=== PATIENT | male | born 1965 | race Caucasian/White ===

== ENCOUNTER 2018-11-07 19:30 | Inpatient (IN) | payer MEDICARE, MEDICAID ==
--- NOTE | 2018-11-07 20:06 | ED Physician Chart ---
ED Chief Complaint/HPI - Patient Information Date Seen:: 11/07/18 Time Seen:: 20:03 Chief Complaint:: weakness dehydration History of Present Illness:: 53 yr old male with hx of mental retardation non verbal here from dc for dehydration and weakness pt non verbal not following commands no fever cough or vomiting Allergies:: Allergies Allergy/AdvReac Type Severity Reaction Status Date / Time No Known Allergies Allergy Verified 11/07/18 19:49 Vitals:: Vital Signs - 8 hr 11/07/18 19:35 Temp 97.7 F HR 80 RR 18 BP 123/90 O2 Sat % 96 ED Review of Systems - Review of Systems General/Constitutional: No fever, No chills, No weight loss, No weakness, No diaphoresis, No edema, No loss of appetite Skin: No skin lesions, No rash, No bruising Head: No headache, No light-headedness Eyes: No loss of vision, No pain, No diplopia ENT: No earache, No nasal drainage, No sore throat, No tinnitus Neck: No neck pain, No swelling, No thyromegaly, No stiffness, No mass noted Cardio Vascular: No chest pain, No palpitations, No PND, No orthopnea, No edema Pulmonary: No SOB, No cough, No sputum, No wheezing GI: No nausea, No vomiting, No diarrhea, No pain, No melena, No hematochezia, No constipation, No hematemesis G/U: No dysuria, No frequency, No hematuria Musculoskeletal: No bone or joint pain, No back pain, No muscle pain Endocrine: No polyuria, No polydipsia Psychiatric: No prior psych history, No depression, No anxiety, No suicidal ideation Hematopoietic: No bruising, No lymphadenopathy Allergic/Immuno: No urticaria, No angioedema Neurological: No syncope, No focal symptoms, No weakness, No paresthesia, No headache, No seizure, No dizziness, No confusion, No vertigo ED Past Medical History - Past Medical History Past Medical History: Other (mental retardation) ED Physical Exam - Physical Examination General/Constitutional: Awake, Well-developed, well-nourished, No distress, Non- toxic appearing Head: Atraumatic Eyes: Lids, conjuctiva normal, PERRL, EOMI Skin: Nl inspection, No rash, No skin lesions, No ecchymosis, Well hydrated, No lymphadenopathy ENMT: External ears, nose nl, Nasal exam nl, Lips, teeth, gums nl Neck: Nontender, Full ROM w/o pain, No JVD, No nuchal rigidity, No bruit, No mass, No stridor Respiratory: Nl effort/Exclusion, Clear to Auscultation, No Wheeze/Rhonchi/Rales Cardio Vascular: RRR, No murmur, gallop, rubs, NL S1 S2 GI: No tenderness/rebounding/guarding, No organomegaly, No hernia, Normal BS's, Nondistended, No mass/bruits, No McBurney tenderness : No CVA tenderness Extremities: No tenderness or effusion, Full ROM, normal strength in all extremities, No edema, Normal digits & nails Neuro/Psych: Alert/oriented, DTR's symmetric, Normal sensory exam, Normal motor strength, Judgement/insight normal, Mood normal, Normal gait, No focal deficits Misc: Normal back, No paraspinal tenderness ED Assessment - Assessment General Assessment: weakness dehydration ED Septic Shock - . Is Septic Shock (SBP<90, OR Lactate>4 mmol\L) present?: No - <6hrs of presentation: Vital Signs: Vital Signs - 8 hr 11/07/18 19:35 Temp 97.7 F HR 80 RR 18 BP 123/90 O2 Sat % 96 ED Reassessment (Disposition) - Reassessment Reassessment:: weakness dehydration mental retardation - Diagnosis Diagnosis:: as above - Patient Disposition Discharge/Transfer:: Acute Care w/in this hosp Admitted to:: Med/Surg Condition at Disposition:: Stable
[2018-11-07 20:52] LABS: % EOSINOPHILS 0.8 % (0.0-5.0); % MONOCYTES 5.9 % (2.0-10.0); % NEUTROPHILS 65.3 % (40.0-80.0); EOSINOPHILE ABSOLUTE 0.1 Th/cmm (0.1-0.4); HEMATOCRIT 43.6 % (41.0-60); HEMOGLOBIN 14.7 gm/dL (12-16); LYMPHOCYTE ABSOLUTE 2.2 Th/cmm (1.5-3.0); MEAN CELL VOLUME 94.4 fl (80-99); MEAN CORPUSCULAR HEMOGLOBIN 31.8 pg (26.0-30.0); MEAN CORPUSCULAR HGB CONC 33.7 pg (28.0-36.0); MONOCYTE ABSOLUTE 0.5 Th/cmm (0.3-1.0); NEUTROPHILE ABSOLUTE 5.2 Th/cmm (1.8-8.0); PLATELET COUNT 159 Th/cmm (150-400); RED BLOOD COUNT 4.62 Mil/cmm (4.30-5.70); RED CELL DISTRIBUTION WIDTH 12.9 % (11.5-20.0)
[2018-11-07 21:26] LABS: ALB/GLOB RATIO 1.7 (1.0-1.8); ALKALINE PHOSPHATASE 51 U/L (34-104); ANION GAP 12.3 (7.0-16.0); BILIRUBIN,TOTAL 0.5 mg/dL (0.3-1.0); BUN - UREA NITROGEN 14 mg/dL (7-25); CALCIUM SERUM 9.2 mg/dL (8.6-10.3); CARBON DIOXIDE 28.5 mEq/L (21.0-31.0); CHLORIDE 98 mEq/L (98-107); CREATININE - SERUM 0.9 mg/dL (0.7-1.3); GFR AFRICAN-AMERICAN > 60.0 ml/min (>90); GFR NON AFRICAN-AMERICAN > 60.0 ml/min; GLUCOSE 94 mg/dL (70-105); POTASSIUM SERUM 3.8 mEq/L (3.5-5.1); SGOT 37 U/L (13-39); SGPT/ALT 32 U/L (7-52); SODIUM SERUM 135 mEq/L (136-145); TOTAL PROTEIN,SERUM 6.4 gm/dL (6.0-8.3)
[2018-11-08] MEDS ORDERED: D5-0.45NS 1,000 ML IV SCH (01:06)
[2018-11-08 01:49] VITALS: BP 104/67
[2018-11-08 05:19] LABS: % BASOPHILS 3.4 % (0.0-2.0); % EOSINOPHILS 0.7 % (0.0-5.0); % LYMPHOCYTES 33.9 % (20.0-50.0); % MONOCYTES 9.4 % (2.0-10.0); % NEUTROPHILS 52.6 % (40.0-80.0); BASOPHILE ABSOLUTE 0.2 Th/cumm (0-0.2); HEMATOCRIT 40.9 % (41.0-60); HEMOGLOBIN 13.6 gm/dL (12-16); LYMPHOCYTE ABSOLUTE 2.3 Th/cmm (1.5-3.0); MEAN CELL VOLUME 95.4 fl (80-99); MEAN CORPUSCULAR HEMOGLOBIN 31.8 pg (26.0-30.0); MEAN CORPUSCULAR HGB CONC 33.4 pg (28.0-36.0); MONOCYTE ABSOLUTE 0.6 Th/cmm (0.3-1.0); NEUTROPHILE ABSOLUTE 3.6 Th/cmm (1.8-8.0); PLATELET COUNT 144 Th/cmm (150-400); RED BLOOD COUNT 4.29 Mil/cmm (4.30-5.70); RED CELL DISTRIBUTION WIDTH 12.6 % (11.5-20.0); WHITE BLOOD COUNT 6.7 Th/cmm (4.8-10.8)
[2018-11-08 05:52] LABS: ALB/GLOB RATIO 1.5 (1.0-1.8); ALBUMIN 3.3 gm/dL (4.2-5.5); ALKALINE PHOSPHATASE 44 U/L (34-104); ANION GAP 9.9 (7.0-16.0); BILIRUBIN,TOTAL 0.5 mg/dL (0.3-1.0); BUN - UREA NITROGEN 12 mg/dL (7-25); CALCIUM SERUM 8.6 mg/dL (8.6-10.3); CARBON DIOXIDE 27.3 mEq/L (21.0-31.0); CHLORIDE 100 mEq/L (98-107); CHOLESTEROL 131 mg/dL (<200); CREATININE - SERUM 0.8 mg/dL (0.7-1.3); GFR AFRICAN-AMERICAN > 60.0 ml/min (>90); GFR NON AFRICAN-AMERICAN > 60.0 ml/min; GLUCOSE 99 mg/dL (70-105); HDL -HIGH DENSITY LIPOPROTEIN 33 mg/dL (23-92); POTASSIUM SERUM 3.2 mEq/L (3.5-5.1); SGOT 33 U/L (13-39); SGPT/ALT 26 U/L (7-52); SODIUM SERUM 134 mEq/L (136-145); TOTAL PROTEIN,SERUM 5.5 gm/dL (6.0-8.3); TRIGLYCERIDES 104 mg/dL (<150)
[2018-11-08] MEDS ORDERED: Potassium Chloride 20 mEq ER Tab PO ONE ×2 (09:51→11:30)
[2018-11-08] MEDS ORDERED: BACITRACIN TP PRN (09:53)
[2018-11-08] MEDS ORDERED: [UNRECOGNIZED DRUG - OTHER] PO PRN (09:57)
[2018-11-08] MEDS ORDERED: PSEUDOEPHEDRINE PO PRN (09:57)
[2018-11-08 10:36] LABS: URINE SOURCE CLEAN C
[2018-11-08 10:45] LABS: URINE BILIRUBIN NEGATIVE (NEGATIVE); URINE BLOOD NEGATIVE (NEGATIVE); URINE GLUCOSE (UA) NEGATIVE (NEGATIVE); URINE KETONE NEGATIVE (NEGATIVE); URINE LEUKOCYTE ESTERASE NEGATIVE (NEGATIVE); URINE NITRATE NEGATIVE (NEGATIVE); URINE PROTEIN NEGATIVE (NEGATIVE)
[2018-11-08 11:00] LABS: URINE CLARITY CLEAR (CLEAR); URINE COLOR YELLOW
[2018-11-08 11:01] LABS: URINE BACTERIA FEW /hpf (NONE SEEN); URINE EPITHELIAL CELLS NONE SEEN /lpf (FEW); URINE MICROSCOPIC INDICATED? YES; URINE RBC 0-2 /hpf (0-5); URINE WBC 0-2 /hpf (0-5)
[2018-11-08] MEDS ORDERED: Bacitracin pkt 1 gm Pkt TP PRN (11:24)
[2018-11-08] MEDS: D5-0.45NS 1,000 ML IV SCH ×2 (13:44→20:49)
[2018-11-08] MEDS ORDERED: HALOPERIDOL 10 MG PO SCH (17:00)
[2018-11-08] MEDS: Benztropine 1 MG TAB PO SCH (17:07)
--- NOTE | 2018-11-08 20:32 | Consultation ---
DATE OF CONSULTATION: 11/08/2018 Initial psychiatric evaluation at Med/Surg. SUBJECTIVE: The patient was seen and evaluated. The patient's chart reviewed. REASON FOR CONSULTATION: Dehydration. HISTORY OF PRESENT ILLNESS: A 53-year-old male with a history of developmental delay, brought in here for dehydration, weakness, nonverbal to follow much commands. No fever, no cough. Today on evaluation, the patient observed to be lethargic, minimally interactive, disengaged in interview, poor historian overall. PAST PSYCHIATRIC HISTORY: History of schizoaffective disorder. ALLERGIES TO MEDICATIONS: NKDA. MEDICAL ILLNESSES: Dehydration, weakness. FAMILY PSYCHIATRIC: Noncontributory. SOCIAL HISTORY: Living in a halfway. Developmental delay. LEGAL HISTORY: Noncontributory. MENTAL STATUS EXAMINATION: Disengaged, withdrawn, lethargic, needing redirection. Unable to assess thought process, thought content due to the patient is selectively mute. ASSESSMENT: Suicidal ideation, unable to assess. CURRENT MEDICATIONS: Bacitracin, ibuprofen, loperamide, benztropine, Haldol, trazodone, Abilify 30 mg, multivitamin, Depakote, Ativan. ASSESSMENT: A 53-year-old male with a history of developmental delay, history of schizoaffective disorder with a history of dehydration and altered mental status. At this time, we will recommend to hold off the Haldol, check a CK level to rule out rhabdomyolysis. Check Depakote levels. PRIMARY DIAGNOSIS: Schizoaffective disorder. SECONDARY DIAGNOSIS: Delirium. MEDICAL DIAGNOSIS: As noted above. PLAN: 1. No criteria for 5150 at this time. 2. We will continue monitoring and evaluating. 3. Recommend to check CK levels and rule out rhabdomyolysis. 4. Recommend to continue with the current medication regimen except for Haldol until further collateral baseline information is obtained. Thank you for the consultation. We will continue to follow along. [facility]# [id number]
[2018-11-08] MEDS ORDERED: Non-Formulary Item 1 EA (Trazodone Hcl [Trazodone Hcl] 100 MG) PO SCH (21:00)
--- NOTE | 2018-11-08 21:21 | Consultation ---
DATE OF CONSULTATION: 11/08/2018 GASTROENTEROLOGY CONSULTATION REQUESTING PHYSICIAN: Dr. Kaykay Pack. REASON FOR CONSULTATION: Poor oral intake. HISTORY OF PRESENT ILLNESS: A 53-year-old male with a possible mental delay, brought in from shelter for anorexia and dehydration. The patient reportedly has a poor oral intake. We were asked to see him for above reasons. PAST MEDICAL HISTORY: As above. MEDICATIONS: Here are Abilify, bacitracin p.r.n., Cogentin, valproic acid, Colace p.r.n., Haldol, ibuprofen p.r.n., Imodium p.r.n., Ativan, multivitamin, trazodone. ALLERGIES: No known drug allergies. SOCIAL HISTORY: half-way resident. Unknown tobacco, alcohol, or drug status. FAMILY HISTORY: Noncontributory. REVIEW OF SYSTEMS: A comprehensive 12-point review of systems was conducted, but it is only positive for those signs and symptoms present in history of present illness. PHYSICAL EXAMINATION: VITAL SIGNS: Temperature 97.6, blood pressure 109/60, pulse of 65, respirations 17, O2 sat is 96% on room air. GENERAL: The patient is a well-developed, chronically ill-appearing male, in no acute distress. HEENT: Sclerae nonicteric. Oropharynx is clear. CARDIOVASCULAR: Regular rate and rhythm. LUNGS: Clear to auscultation bilaterally. ABDOMEN: Soft, nontender, slightly distended. Normoactive bowel sounds. EXTREMITIES: No clubbing, cyanosis or edema. RECTAL: Deferred. LABORATORY DATA AND IMAGING: WBC 6.7, hemoglobin 13.6, platelet count is 144. Sodium 134, creatinine 0.8. LFTs are normal. Troponin negative. Urinalysis is clear. IMPRESSION: 1. Poor oral intake, rule out gastroesophageal reflux disease, constipation or anorexia from central etiology such as worsening encephalopathy. 2. Mental delay with possible psychosis and psychiatric disorder. RECOMMENDATIONS: 1. Check KUB to rule out constipation or fecal impaction. 2. Check baseline labs including amylase and lipase to rule out pancreatitis. 3. Monitor oral caloric intake with calorie count. 4. If oral intake remains poor and if consent obtained, then consider upper endoscopy and/or G-tube insertion. 5. Psychiatry followup. Thank you, Dr. Kaykay Pack for involving us in the care of your patient. If you have any further questions, please call us. JOB# [id number]
[2018-11-09 06:47] LABS: ALB/GLOB RATIO 1.7 (1.0-1.8); ALBUMIN 3.6 gm/dL (4.2-5.5); ALKALINE PHOSPHATASE 45 U/L (34-104); ANION GAP 10.4 (7.0-16.0); BILIRUBIN,TOTAL 0.4 mg/dL (0.3-1.0); BUN - UREA NITROGEN 9 mg/dL (7-25); CALCIUM SERUM 8.8 mg/dL (8.6-10.3); CARBON DIOXIDE 25.3 mEq/L (21.0-31.0); CHLORIDE 106 mEq/L (98-107); CREATININE - SERUM 0.8 mg/dL (0.7-1.3); GFR AFRICAN-AMERICAN > 60.0 ml/min (>90); GFR NON AFRICAN-AMERICAN > 60.0 ml/min; GLUCOSE 119 mg/dL (70-105); LIPASE 25 U/L (11-82); POTASSIUM SERUM 3.7 mEq/L (3.5-5.1); SGOT 36 U/L (13-39); SGPT/ALT 29 U/L (7-52); SODIUM SERUM 138 mEq/L (136-145); TOTAL PROTEIN,SERUM 5.7 gm/dL (6.0-8.3)
[2018-11-09 06:59] LABS: % BASOPHILS 4.8 % (0.0-2.0); % EOSINOPHILS 1.6 % (0.0-5.0); % LYMPHOCYTES 29.1 % (20.0-50.0); % NEUTROPHILS 55.5 % (40.0-80.0); BASOPHILE ABSOLUTE 0.4 Th/cumm (0-0.2); EOSINOPHILE ABSOLUTE 0.1 Th/cmm (0.1-0.4); HEMATOCRIT 43.6 % (41.0-60); HEMOGLOBIN 14.6 gm/dL (12-16); LYMPHOCYTE ABSOLUTE 2.2 Th/cmm (1.5-3.0); MEAN CELL VOLUME 94.7 fl (80-99); MEAN CORPUSCULAR HEMOGLOBIN 31.8 pg (26.0-30.0); MEAN CORPUSCULAR HGB CONC 33.6 pg (28.0-36.0); MONOCYTE ABSOLUTE 0.7 Th/cmm (0.3-1.0); NEUTROPHILE ABSOLUTE 4.1 Th/cmm (1.8-8.0); PLATELET COUNT 160 Th/cmm (150-400); RED CELL DISTRIBUTION WIDTH 12.9 % (11.5-20.0); WHITE BLOOD COUNT 7.5 Th/cmm (4.8-10.8)
[2018-11-09] MEDS ORDERED: Non-Formulary Item 1 EA (Multivitamin [Multivitamins] 1 CAP) PO SCH (09:00)
[2018-11-09] MEDS ORDERED: Non-Formulary Item 1 EA (Aripiprazole [Abilify] 20 MG) PO SCH (09:00)
[2018-11-09] MEDS ORDERED: Non-Formulary Item 1 EA (Linaclotide [Linzess] 145 MCG) PO SCH (09:00)
[2018-11-09] MEDS: D5-0.45NS 1,000 ML IV SCH ×2 (10:53→17:11)
--- NOTE | 2018-11-09 10:55 | History and Physical ---
History of Present Illness - HPI Chief Complaint: Weakness and Dehydration HPI: 53-yr old male with hx of developmental delay, non-verbal in ER came from [facility] for dehydration and weakness. Patient was non-verbal and was not following commands. Vital Signs: Last Vital Signs Temp 98.6 F 11/09/18 08:00 Pulse 74 11/09/18 08:00 Resp 18 11/09/18 08:00 BP 114/65 11/09/18 08:00 Pulse Ox 96 11/09/18 08:00 Past Medical History Psych: Report: Schizophrenia Musculoskeletal: Report: Weakness Other History: Developmental Delay Social History Smoke: No Alcohol: Other (unknown) Drugs: Other (unknown) Lives: Intermediate - Medications Home Medications: Home Medication Medication Instructions Recorded Type Aripiprazole [Abilify] 20 mg PO DAILY 11/07/18 History Bacitracin 1 pkt TP ONCE PRN 11/07/18 History Benztropine [Cogentin*] 1 mg PO BID 11/07/18 History Divalproex ER [Depakote ER] 1,000 mg PO HS 11/07/18 History Divalproex Sodium [Depakote ER] 500 mg PO QAM 11/07/18 History Docusate Sodium [Dok] 100 mg PO HS PRN 11/07/18 History Guaifenesin/Dextromethorphan 1 - 2 tsp PO QID PRN 11/07/18 History [Tussin Dm Cough Syrup] Haloperidol 10 mg PO BID 11/07/18 History Ibuprofen [Motrin*] 600 mg PO TID PRN 11/07/18 History Linaclotide [Linzess] 145 mcg PO DAILY 11/07/18 History Loperamide [Imodium] 2 mg PO Q6HR PRN 11/07/18 History Lorazepam [Ativan] 1 mg PO BID 11/07/18 History Multivitamin [Multivitamins] 1 cap PO DAILY 11/07/18 History Trazodone HCl 100 mg PO HS 11/07/18 History Triprolidine/Pseudoephedrine 1 each PO TID PRN 11/07/18 History [Aprodine Tablet] aripIPRAZOLE [Abilify] 10 mg PO HS 11/07/18 History - Allergies Allergies/Adverse Reactions: Allergies Allergy/AdvReac Type Severity Reaction Status Date / Time No Known Allergies Allergy Verified 11/07/18 19:49 Review of Systems - Review of Systems Constitutional: Report: Weakness Eyes: Report: No Significant ENT: Report: No Significant Respiratory: Report: No Significant Cardiovascular: Report: No Significant Gastrointestinal: Report: No Significant Genitourinary: Report: No Significant Musculoskeletal: Report: No Significant Skin: Report: No Significant Neurological: Report: No Significant Other: Patient poor historian. Physical Exam - Physical Exam Neck: Report: Within normal limits Cardiovascular Systems: Report: +s1/s2 noted, Regular, Rate and Rhythm, no murmurs noted Respiratory: Report: Breath Sounds are within normal limits, Clear to Auscultation of lung deutsch Abdomen: Report: Non-tender to palpation Extremities: Report: Non-tender to palpation. Neuro/Psych: Report: Other (developmentally delayed) - Lab Results All Lab Results last 24 hours: Laboratory Results - last 24 hr 11/08/18 11/08/18 11/08/18 05:00 10:30 11:33 WBC RBC Hgb Hct MCV MCH MCHC Differential RDW Plt Count MPV Neutrophils % Lymphocytes % Monocytes % Eosinophils % Basophils % Sodium Potassium Chloride Carbon Dioxide Anion Gap BUN Creatinine Est GFR ( Amer) Est GFR (Non-Af Amer) BUN/Creatinine Ratio Glucose Calcium Total Bilirubin AST ALT Alkaline Phosphatase Creatine Kinase 586 H CK-MB (CK-2) 23.1 H Total Protein Albumin Globulin Albumin/Globulin Ratio Lipase TSH 3.02 Urine Source CLEAN C Urine Color YELLOW Urine Clarity CLEAR Urine pH 6.0 Ur Specific [place] <= 1.005 Urine Protein NEGATIVE Urine Glucose (UA) NEGATIVE Urine Ketones NEGATIVE Urine Blood NEGATIVE Urine Nitrate NEGATIVE Urine Bilirubin NEGATIVE Urine Urobilinogen 1.0 Ur Leukocyte Esterase NEGATIVE Urine RBC 0-2 H Urine WBC 0-2 Ur Epithelial Cells NONE SEEN Urine Bacteria FEW 11/09/18 11/09/18 05:40 05:40 WBC 7.5 RBC 4.60 Hgb 14.6 Hct 43.6 MCV 94.7 MCH 31.8 H MCHC Differential 33.6 RDW 12.9 Plt Count 160 MPV 7.8 Neutrophils % 55.5 Lymphocytes % 29.1 Monocytes % 9.0 Eosinophils % 1.6 Basophils % 4.8 H Sodium 138 Potassium 3.7 Chloride 106 Carbon Dioxide 25.3 Anion Gap 10.4 BUN 9 Creatinine 0.8 Est GFR ( Amer) > 60.0 Est GFR (Non-Af Amer) > 60.0 BUN/Creatinine Ratio 11.3 Glucose 119 H Calcium 8.8 Total Bilirubin 0.4 AST 36 ALT 29 Alkaline Phosphatase 45 Creatine Kinase CK-MB (CK-2) Total Protein 5.7 L Albumin 3.6 L Globulin 2.1 Albumin/Globulin Ratio 1.7 Lipase 25 TSH Urine Source Urine Color Urine Clarity Urine pH Ur Specific [place] Urine Protein Urine Glucose (UA) Urine Ketones Urine Blood Urine Nitrate Urine Bilirubin Urine Urobilinogen Ur Leukocyte Esterase Urine RBC Urine WBC Ur Epithelial Cells Urine Bacteria Microbiology 11/07/18 20:45 - Preliminary Blood NO GROWTH AFTER 24 HOURS 11/07/18 20:35 - Preliminary Blood NO GROWTH AFTER 24 HOURS - Assessment Assessment: Developmental Delay Dehydration Weakness H/O schizoaffective disorder - Plan Plan: Continue current treatment plan. Monitor Labs.Continue current medications Continue to monitor VS Monitor Diet/Nutritional support. Psych management per Psychiatry. Pain Management. PT/OT prn Safety precaution, Fall precaution, frequent nursing round. Supportive care. Continue collaborating with consulting specialists, case management and nursing team. Follow up calorie counting. Follow up KUB results. Follow up abdominal US.
[2018-11-09] MEDS: Multivitamin Tab PO SCH (11:33)
[2018-11-09] MEDS: Benztropine 1 MG TAB PO SCH ×2 (11:37→17:11)
[2018-11-10] MEDS: D5-0.45NS 1,000 ML IV SCH ×4 (00:11→11:31)
--- NOTE | 2018-11-10 05:23 | Progress Notes ---
DATE: 11/09/2018 The patient was seen and evaluated. The patient's chart reviewed. Overnight nursing staff reported the patient is more awake, more alert. Today on [id number] evaluation, the patient is non-sedated. He is more awake and more alert, and due to the patient's developmental delay, the history is limited, but he reports "no pain," and he is able to report that he is in the hospital, although overall poor historian. MENTAL STATUS EXAMINATION: More alert, oriented to hospital. No suicidal, homicidal, or auditory hallucinations. ASSESSMENT AND PLAN: History of schizophrenia, history of developmental delay. Overnight, the patient's CK had been treated for dehydration, seems to be improving per the primary physician. I am recommending to check another CK level. If he continues to lower in the next 24 hours, the patient's Abilify may be resumed as a standing dosage. Thank you for your consultation. JOB# [id number]
[2018-11-10] MEDS: Multivitamin Tab PO SCH (08:56)
[2018-11-10] MEDS: Benztropine 1 MG TAB PO SCH (08:56)
--- NOTE | 2018-11-10 09:22 | Diagnostic Imaging Report ---
KUB single view HISTORY: Constipation. COMPARISON: None FINDINGS: Generalized gas-filled loops of bowel are noted with moderate stool noted in distal fecal impaction. Osseous structures are intact. Pelvic phleboliths are noted. Degenerative change of the lower lumbar spine are noted with possible spina bifida occulta L5. IMPRESSION: Generalized gas-filled loops of bowel with moderate stool and distal fecal impaction. Findings may be due to mild constipation and ileus.
--- NOTE | 2018-11-10 09:27 | Diagnostic Imaging Report ---
Ultrasound abdomen HISTORY: Abdominal pain COMPARISON: KUB performed the same day Technique: Sonography of the abdomen was performed in multiple planes. FINDINGS: Exam is limited due to body habitus and as patient was uncooperative. The liver demonstrates normal echogenicity and measures 12.1 cm. Assessment of the left lobe of the liver was limited limiting assessment for focal lesions. The gallbladder was poorly evaluated. There appear to be gallbladder folds. Note patient refused to do left lateral decubitus views. The common bile duct and pancreas were also not clearly seen. Limited assessment of the kidneys demonstrates no hydronephrosis or obvious focal lesions. Assessment for focal lesions is limited. The spleen measures 11.3 cm. IMPRESSION: Severely limited exam due to patient body habitus and patient was uncooperative. The gallbladder was not able to be well evaluated. There appear to be gallbladder folds. Recommend further assessment with left lateral decubitus images, when clinically feasible. No evidence of hydronephrosis.
--- NOTE | 2018-11-10 11:27 | Internal Medicine Prog Note ---
Internal Medicine Subjective - Subjective Service Date: 11/10/18 Patient seen and examined:: with staff Patient is:: awake, non-verbal, non-interactive, in bed Patient Complaints of:: other (Developmental delay.) Per staff patient has:: no adverse event, no episodes of fall Internal Medicine Objective - Results Result Diagrams: 11/09/18 05:40 11/09/18 05:40 Recent Labs: Laboratory Last Values WBC 7.5 Th/cmm (4.8-10.8) 11/09/18 05:40 RBC 4.60 Mil/cmm (4.30-5.70) 11/09/18 05:40 Hgb 14.6 gm/dL (12-16) 11/09/18 05:40 Hct 43.6 % (41.0-60) 11/09/18 05:40 MCV 94.7 fl (80-99) 11/09/18 05:40 MCH 31.8 pg (26.0-30.0) H 11/09/18 05:40 MCHC Differential 33.6 pg (28.0-36.0) 11/09/18 05:40 RDW 12.9 % (11.5-20.0) 11/09/18 05:40 Plt Count 160 Th/cmm (150-400) 11/09/18 05:40 MPV 7.8 fl 11/09/18 05:40 Neutrophils % 55.5 % (40.0-80.0) 11/09/18 05:40 Lymphocytes % 29.1 % (20.0-50.0) 11/09/18 05:40 Monocytes % 9.0 % (2.0-10.0) 11/09/18 05:40 Eosinophils % 1.6 % (0.0-5.0) 11/09/18 05:40 Basophils % 4.8 % (0.0-2.0) H 11/09/18 05:40 Sodium 138 mEq/L (136-145) 11/09/18 05:40 Potassium 3.7 mEq/L (3.5-5.1) 11/09/18 05:40 Chloride 106 mEq/L (98-107) 11/09/18 05:40 Carbon Dioxide 25.3 mEq/L (21.0-31.0) 11/09/18 05:40 Anion Gap 10.4 (7.0-16.0) 11/09/18 05:40 BUN 9 mg/dL (7-25) 11/09/18 05:40 Creatinine 0.8 mg/dL (0.7-1.3) 11/09/18 05:40 Est GFR ( Amer) > 60.0 ml/min (>90) 11/09/18 05:40 Est GFR (Non-Af Amer) > 60.0 ml/min 11/09/18 05:40 BUN/Creatinine Ratio 11.3 11/09/18 05:40 Glucose 119 mg/dL (70-105) H 11/09/18 05:40 Whole Bld Lactic Acid 1.17 mmol/L (0.60-1.99) 11/07/18 20:40 Calcium 8.8 mg/dL (8.6-10.3) 11/09/18 05:40 Total Bilirubin 0.4 mg/dL (0.3-1.0) 11/09/18 05:40 AST 36 U/L (13-39) 11/09/18 05:40 ALT 29 U/L (7-52) 11/09/18 05:40 Alkaline Phosphatase 45 U/L (34-104) 11/09/18 05:40 Creatine Kinase 586 U/L (30-223) H 11/08/18 11:33 CK-MB (CK-2) 23.1 ng/mL (0.6-6.3) H 11/08/18 11:33 Troponin I < 0.01 ng/mL (0.01-0.05) L 11/07/18 20:40 Total Protein 5.7 gm/dL (6.0-8.3) L 11/09/18 05:40 Albumin 3.6 gm/dL (4.2-5.5) L 11/09/18 05:40 Globulin 2.1 gm/dL 11/09/18 05:40 Albumin/Globulin Ratio 1.7 (1.0-1.8) 11/09/18 05:40 Triglycerides 104 mg/dL (<150) 11/08/18 05:00 Cholesterol 131 mg/dL (<200) 11/08/18 05:00 LDL Cholesterol Direct 88 mg/dL (75-193) 11/08/18 05:00 HDL Cholesterol 33 mg/dL (23-92) 11/08/18 05:00 Lipase 25 U/L (11-82) 11/09/18 05:40 TSH 3.02 uIU/ml (0.34-5.60) 11/08/18 05:00 Urine Source CLEAN C 11/08/18 10:30 Urine Color YELLOW 11/08/18 10:30 Urine Clarity CLEAR (CLEAR) 11/08/18 10:30 Urine pH 6.0 (4.6 - 8.0) 11/08/18 10:30 Ur Specific [place] <= 1.005 (1.005-1.030) 11/08/18 10:30 Urine Protein NEGATIVE mg/dL (NEGATIVE) 11/08/18 10:30 Urine Glucose (UA) NEGATIVE mg/dL (NEGATIVE) 11/08/18 10:30 Urine Ketones NEGATIVE mg/dL (NEGATIVE) 11/08/18 10:30 Urine Blood NEGATIVE (NEGATIVE) 11/08/18 10:30 Urine Nitrate NEGATIVE (NEGATIVE) 11/08/18 10:30 Urine Bilirubin NEGATIVE (NEGATIVE) 11/08/18 10:30 Urine Urobilinogen 1.0 E.U./dL (0.2 - 1.0) 11/08/18 10:30 Ur Leukocyte Esterase NEGATIVE (NEGATIVE) 11/08/18 10:30 Urine RBC 0-2 /hpf (0-5) H 11/08/18 10:30 Urine WBC 0-2 /hpf (0-5) 11/08/18 10:30 Ur Epithelial Cells NONE SEEN /lpf (FEW) 11/08/18 10:30 Urine Bacteria FEW /hpf (NONE SEEN) 11/08/18 10:30 Valproic Acid 57.5 ug/mL (50.0-100.0) 11/08/18 05:00 - Physical Exam Vitals and I&O: Vital Signs Temp 97.6 F 11/10/18 08:00 Pulse 78 11/10/18 08:00 Resp 18 11/10/18 08:00 BP 98/66 11/10/18 08:00 Pulse Ox 97 11/10/18 08:00 Intake & Output 11/09/18 11/10/18 11/10/18 18:59 06:59 18:59 Intake Total 945 2200 257.5 Output Total 1400 Balance 945 800 257.5 Weight (lbs) 99.291 kg 96.797 kg Intake: Intake, IV Amount 945 2000 257.5 D5-0.45NS 1,000 ml @ 206 053 6629 257.5 mls/hr IV .Q6H40M [facility] Rx# :[id number] Oral 0 200 Output: Urine 1400 Other: Weight Source Bedscale Bedscale Active Medications: Current Medications Aripiprazole (Abilify) 10 mg PO HS [facility]; Protocol Stop: 01/07/19 20:59 Bacitracin (Baciquent) 1 pkt TP DAILY PRN PRN Reason: Rash Stop: 01/07/19 11:23 Benztropine Mesylate (Cogentin) 1 mg PO BID [facility] Stop: 01/07/19 16:59 Last Admin: 11/10/18 08:56 Dose: 1 mg Divalproex Sodium (Depakote Er) 1,000 mg PO HS [facility]; Protocol Stop: 01/07/19 20:59 Last Admin: 11/09/18 21:35 Dose: 1,000 mg Divalproex Sodium (Depakote Er) 500 mg PO QAM [facility]; Protocol Stop: 01/08/19 08:59 Last Admin: 11/10/18 08:56 Dose: 500 mg Docusate Sodium (Colace) 100 mg PO HS PRN PRN Reason: Constipation Stop: 01/07/19 09:52 Haloperidol (Haldol) 10 mg PO BID [facility] Stop: 01/07/19 16:59 Last Admin: 11/10/18 08:58 Dose: Not Given Dextrose/Sodium Chloride (D5-0.45ns) 1,000 mls @ 150 mls/hr IV .Q6H40M [facility] Stop: 01/07/19 13:15 Last Admin: 11/10/18 08:54 Dose: 150 mls/hr Ibuprofen (Motrin) 600 mg PO TID PRN PRN Reason: Pain (Mild) Stop: 01/07/19 09:52 Loperamide HCl (Imodium) 2 mg PO Q6HR PRN PRN Reason: Diarrhea Stop: 01/07/19 09:52 Lorazepam (Ativan) 1 mg PO BID [facility]; Protocol Stop: 01/07/19 16:59 Last Admin: 11/10/18 09:00 Dose: Not Given Megestrol Acetate (Megace) 400 mg PO DAILY [facility]; Protocol Stop: 01/07/19 15:59 Last Admin: 11/10/18 08:55 Dose: 400 mg Miscellaneous (Linaclotide [Linzess]) 145 mcg PO DAILY [facility] Stop: 01/08/19 08:59 Miscellaneous (Triprolidine/Pseudoephedrine [Aprodine Tablet]) 1 each PO TID PRN PRN Reason: Allergy Symptoms Multivitamins/Vitamin C (Theragran) 1 tab PO DAILY [facility]AMES Stop: 01/08/19 08:59 Last Admin: 11/10/18 08:56 Dose: 1 tab Trazodone HCl (Desyrel) 100 mg PO HS [facility] Stop: 01/07/19 20:59 Last Admin: 11/09/18 21:36 Dose: 100 mg Physical Exam: Patient is non-verbal, non-interactive has, hx of developmental delay. General: weak HEENT: NC/AT Neck: Supple, No JVD Lungs: CTAB Cardiovascular: RRR, Normal S1 Abdomen: soft, non-tender Extremities: clear Neurological: no change, unable to follow command Internal Medicine Assmt/Plan - Assessment Assessment: H/o Schizoaffective disorder. Developmental delay. Dehydration. Weakness. - Plan Plan: Continuation of care. Monitor Labs, KUB and Abd. U/S results. Continue present meds as directed. Psych management per Psych. Monitor Diet/Nutritional support. Physical therapy/Occupational therapy prn. Fall precaution, frequent nursing rounds, and as needed restraints to prevent fall. Safety precaution. Supportive care. Continue collaborating with consulting specialists, case management and nursing team. Will Monitor patient and continue present care management. Nutritional Asmnt/Malnutr-PDOC - Dietary Evaluation Malnutrition Findings (Please click <Entered> for more info): Nutritional Asmnt/Malnutrition Start: 11/09/18 10: 41 Text: Status: Complete Freq: Protocol: Document 11/09/18 10:41 AMANDA (Rec: 11/09/18 10:45 AMANDA [id number]) Nutritional Asmnt/Malnutrition Patient General Information Nutritional Screening Moderate Risk Consult Diagnosis Generalized Weakness, Poor appetite, Dehydration Pertinent Medical Hx/Surgical Hx Mental Retardation Subjective Information Pt is a 53-year-old male admitted on 11/07 from a intermediate d/t lethargy. Pt was ordered Megace on 11/08. Per Meal/Nutrition Activity Record , Pt ate 100% lunch on 11/08 and was NPO at breakfast 11/09 d/t scheduled ultrasound of the abdomen-results still pending. Pt has a Hx of mental retardation, Pt is non-verbal and does not follow commands per ER report. HT: 511 WT: 219 LB (99.55 kg) ABW: 184 LB (83.52 kg) BMI: 30.54 (Obese) GI: WNL, Soft, non-tender BM: Not noted I/O (11/09): 2100/1500 (+600) Skin: WNL, warm, dry, elastic, intact, redness Pastor: 17 Diet Order: Mechanical Soft Estimated Energy Needs: (Adult , ABW) 4270-9968 kcals (25-30 kcals/ kg) 83-100g Pro (1.0-1.2 g/kg) 4940-3327 ml (25-30 ml/kg) Current Diet Order/ Nutrition Support Mechanical Soft Pertinent Medications D5-0.45ns, Colace, Imodium ( PRN), Megace, Theragran Pertinent Labs 11/09: Glucose 119, T Pro 5.7, Alb 3.6 11/08: Hgb/Hct 13.6/40.9, Na 134, K 3.2, T Pro 5.5, Alb 3.3 , Cr Kinase 586 Nutritional Hx/Data Height 1.8 m Height (Calculated Centimeters) 180.3 Current Weight (lbs) 99.337 kg Weight (Calculated Kilograms) 99.3 Weight (Calculated Grams) 35567.7 [place] Body Weight 172 LB (78.18 kg) % [place] Body Weight 127 Body Mass Index (BMI) 30.5 Weight Status Obese GI Symptoms Last BM Not noted Skin Integrity/Comment: Skin: WNL, warm, dry, elastic, intact, redness Pastor: 17 Current %PO Fair (50-74%) Estimated Nutritional Goals BEE in Kcals: Adj wt of IBW Calories/Kcals/Kg 25-30 Kcals Calculated 9060-2351 Protein: Adj wt of IBW Protein g/k.0-1.2 Protein Calculated 83-100 Fluid: ml 0463-3794 ml (25-30 ml/kg) Nutritional Problem 1. Problem Problem Altered nutrition related labs Etiology r/t dehydration/ pathophysiological causes Signs/Symptoms: aeb Glucose 119, T Pro 5.7, Alb 3.6 Malnutrition Related to Morbid Obesity Malnutrition related to morbid obesity No Intervention/Recommendation Comments 1. Continue with mechanical soft diet as ordered. 2. RN to encourage PO intake. Expected Outcomes/Goals Expected Outcomes/Goals 1. PO intake to meet 75% of nutritional needs. 2. Monitor PO intake, wt, skin integrity and nutrition related labs to trend WNL. 3. F/U as moderate risk in 3-5 days, 11/12-11/14
--- NOTE | 2018-11-10 23:26 | Progress Notes ---
DATE: 11/10/[address] Joseph. Case was discussed with staff of the patient, reviewed records. The patient is a 53-year-old male with a history of developmental delay, brought here for dehydration, weakness, nonverbal follow much commands, lethargic, and minimally interactive. He is more alert and nonsedated but he is developmentally delayed. The history is in general limited because of his condition. He is a poor historian. He has a history of schizophrenia and developmental delay, has been treated for dehydration and seems to be improving. Dr. Mccray recommended to restart him on Abilify, if his CK level goes down. It seemed like it was restarted. He is also on Haldol 10 mg twice a day, the patient can follow up with the psychiatrist upon discharge. Thank you very much for allowing me to participate in the care of this most interesting gentleman. JOB# [id number]
== END 2018-11-10 15:55 | DRG 641 ==
LOC: ER 19:30 → MSI 23:45
PROVIDERS: ADMIT Internal Medicine; ATTEND Internal Medicine
DX: E86.0 Dehydration (principal); R45.851 Suicidal ideations; R53.1 Weakness; F79 Unspecified intellectual disabilities; F25.9 Schizoaffective disorder, unspecified; R63.0 Anorexia; Z68.29 Body mass index [BMI] 29.0-29.9, adult
CPT/HCPCS: 36415-UA; 74000-TC; 76700-TC; 80053-TC; 80061-TC; 80164-TC; 81001-TC; 82550-TC; 82553; 83605; 83690-TC; 84443-TC; 84484-TC; 85025-TC; Z7610